=== PATIENT | male | born 1975 | race Caucasian/White ===

== ENCOUNTER 2023-09-05 09:24 | Day surgery (SDC) | payer OTHER ==
[~2023-09-05] VITALS: Ht 185.4 cm; Wt 137.0 kg
[~2023-09-05 09:24] MED LIST: LIDOCAINE 2% 100MG/5ML SDV (FOR ANES.) As Ordered ONE; LISI20TA33 PO; propofoL 200 MG/20 ML VIAL As Ordered ONE
[2023-09-05] MEDS: NS 1,000 ML IV ONE (09:40)
[2023-09-05 10:34] VITALS: TEMP 97.9
[2023-09-05 10:50] VITALS: BP 129/76; O2SAT 98
== END 2023-09-05 11:00 | disposition home or self-care (01) ==
LOC: M OPP 09:24
PROVIDERS: ATTEND Internal Medicine Gastroenterology
DX: Z12.11 Encounter for screening for malignant neoplasm of colon (principal); Z12.12 Encounter for screening for malignant neoplasm of rectum; D12.3 Benign neoplasm of transverse colon; K64.8 Other hemorrhoids; K64.4 Residual hemorrhoidal skin tags; I10 Essential (primary) hypertension; Z90.49 Acquired absence of other specified parts of digestive tract